=== PATIENT | male | born 1950 | race Caucasian/White ===

== ENCOUNTER 2017-04-05 11:29 | Emergency (ER) | payer MEDICARE ==
[2017-04-05 12:39] LABS: HEMOGLOBIN 8.8 gm/dl (14.0-17.5); RED BLOOD COUNT 4.32 M/UL (4.20-5.50); WHITE BLOOD COUNT 5.7 K/UL (4.5-11.0)
[2017-04-05 12:55] LABS: BUN/CREATININE RATIO 19 (0-10)
== END 2017-04-05 14:07 | disposition home or self-care (01) ==
LOC: ER1 11:29
PROVIDERS: Physician Assistant
DX: E87.5 Hyperkalemia (principal); E11.9 Type 2 diabetes mellitus without complications; I10 Essential (primary) hypertension; E78.5 Hyperlipidemia, unspecified; Z86.73 Personal history of transient ischemic attack (TIA), and cerebral infarction without residual deficits; Z88.0 Allergy status to penicillin; Z79.82 Long term (current) use of aspirin; Z79.899 Other long term (current) drug therapy; Z79.84 Long term (current) use of oral hypoglycemic drugs
CPT/HCPCS: 36415; 80053; 82550; 82553; 83874; 84484; 85025; 93005; 99285

== ENCOUNTER → 2017-04-07 | Outpatient (CLI) | payer MEDICARE ==
[2017-04-07 14:02] LABS: BUN/CREATININE RATIO 24 (0-10)
== END ==
LOC: LAB 13:06
PROVIDERS: Physician Assistant
DX: E87.5 Hyperkalemia (principal)
CPT/HCPCS: 36415; 80048

== ENCOUNTER 2021-01-06 13:49 | Observation (INO) | payer MEDICARE, OTHER ==
[~2021-01-06] VITALS: Ht 182.9 cm; Wt 90.7 kg
[2021-01-06 15:10] LABS: HEMOGLOBIN 12.9 gm/dl (14.0-17.5); RED BLOOD COUNT 4.74 M/UL (4.20-5.50); WHITE BLOOD COUNT 8.2 K/UL (4.5-11.0)
[2021-01-06 16:44] LABS: BUN/CREATININE RATIO 19 (0-10)
[2021-01-07] MEDS ORDERED: PROZAC20 MG PO (00:27)
[2021-01-07] MEDS ORDERED: TRAZODONE HCL100 MG PO (00:28)
[2021-01-07] MEDS ORDERED: ACTOS30 MG PO (00:28)
[2021-01-07] MEDS ORDERED: ALPRAZOLAM0.5 MG PO (00:34)
[2021-01-07] MEDS ORDERED: QUETIAPINE FUMA25 MG PO (00:34)
[2021-01-07] MEDS ORDERED: VERAPAMIL ER240 M1 PO (00:36)
[2021-01-07] MEDS ORDERED: GLUCOPHAGE 500500 MG GT (01:45)
[2021-01-07] MEDS ORDERED: PRILOSEC OTC20 MG PO (01:46)
[2021-01-07] MEDS ORDERED: LISINOPRIL10 MG PO (01:47)
[2021-01-07 03:42] LABS: HEMOGLOBIN 11.2 gm/dl (14.0-17.5); WHITE BLOOD COUNT 7.7 K/UL (4.5-11.0)
[2021-01-07 03:54] LABS: RED BLOOD COUNT 4.2 M/UL (4.20-5.50)
[2021-01-07 04:03] LABS: BUN/CREATININE RATIO 16 (0-10)
--- NOTE | 2021-01-08 15:14 | NUR ---
called and told pt about appt with neuro, Dr Locke 01/23/21 @ 0060 , so pt is aware
== END 2021-01-08 14:52 | disposition home or self-care (01) ==
LOC: ER1 13:49 → CDU 18:44 → M/S 19:45
PROVIDERS: Physician Assistant Medical; ADMIT Internal Medicine
DX: R55 Syncope and collapse (principal); E11.9 Type 2 diabetes mellitus without complications; E78.00 Pure hypercholesterolemia, unspecified; I10 Essential (primary) hypertension; G43.909 Migraine, unspecified, not intractable, without status migrainosus; E55.9 Vitamin D deficiency, unspecified; E53.8 Deficiency of other specified B group vitamins; Z89.411 Acquired absence of right great toe; Z89.421 Acquired absence of other right toe(s); Z88.0 Allergy status to penicillin; Z79.84 Long term (current) use of oral hypoglycemic drugs; Z79.899 Other long term (current) drug therapy
CPT/HCPCS: ECHO; 36415; 70450; 70551; 71045; 80048; 80053; 81001; 82550; 82553; 82607; 83735; 83874; 84439; 84443; 84484; 85025; 93005; 93306; 93880; 96374; 96376; 99285; G0378; J3475

== ENCOUNTER 2021-12-18 13:05 | Observation (INO) | payer MEDICARE, OTHER ==
[~2021-12-18] VITALS: Ht 182.9 cm; Wt 92.1 kg
[~2021-12-18 13:05] MED LIST: ACTOS30 MG PO; ALPRAZOLAM0.5 MG PO; GLUCOPHAGE 500500 MG PO; LISINOPRIL10 MG PO; PRILOSEC OTC20 MG PO; PROZAC20 MG PO; QUETIAPINE FUMA25 MG PO; TRAZODONE HCL100 MG PO; VERAPAMIL ER240 M1 PO
[2021-12-18 17:09] LABS: HEMOGLOBIN 10.7 gm/dl (14.0-17.5); RED BLOOD COUNT 4.08 M/UL (4.20-5.50); WHITE BLOOD COUNT 7.7 K/UL (4.5-11.0)
[2021-12-18 17:40] LABS: BUN/CREATININE RATIO 12 (0-10)
[2021-12-19] MEDS ORDERED: PROZAC20 MG PO (11:08)
[2021-12-19] MEDS ORDERED: LEVETIRACETAM500 MG PO (11:13)
[2021-12-19] MEDS ORDERED: ZOLPIDEM TART6.25 MG PO (11:15)
[2021-12-20 08:17] LABS: HEMOGLOBIN 10.4 gm/dl (14.0-17.5); RED BLOOD COUNT 3.95 M/UL (4.20-5.50); WHITE BLOOD COUNT 7.7 K/UL (4.5-11.0)
[2021-12-20 08:37] LABS: BUN/CREATININE RATIO 10 (0-10)
[2021-12-20] MEDS ORDERED: VITAMIN B-121000 MC3 PO (09:11)
[2021-12-20] MEDS ORDERED: ASPIRIN EC81 MG PO (09:11)
[2021-12-20] MEDS ORDERED: LEVOFLOXACIN500 MG PO (09:11)
[2021-12-20] MEDS ORDERED: LIPITOR20 MG PO (09:12)
== END 2021-12-20 12:35 | disposition home or self-care (01) ==
LOC: ER1 13:05 → CDU 20:13 → MED SURG 4 20:13
PROVIDERS: Internal Medicine; Nurse Practitioner; ADMIT Internal Medicine
DX: R42 Dizziness and giddiness (principal); E11.9 Type 2 diabetes mellitus without complications; I65.21 Occlusion and stenosis of right carotid artery; E53.8 Deficiency of other specified B group vitamins; E78.5 Hyperlipidemia, unspecified; N30.00 Acute cystitis without hematuria; I10 Essential (primary) hypertension; Z88.0 Allergy status to penicillin; Z79.84 Long term (current) use of oral hypoglycemic drugs; Z79.899 Other long term (current) drug therapy
CPT/HCPCS: ECHO; 36415; 70450; 70496; 70498; 70551; 71045; 80048; 80053; 80307; 81001; 82550; 82553; 82607; 83036; 83735; 84100; 84439; 84443; 84484; 85025; 87077; 87086; 87186; 93005; 93306; 96372; 97161; 97165; 99285; G0378; J1650; J3420; Q9967

== ENCOUNTER 2022-01-16 10:36 | Emergency (ER) | payer MEDICARE, OTHER ==
[~2022-01-16 10:36] MED LIST changes: +ASPIRIN EC81 MG PO; +LEVETIRACETAM500 MG PO; +LEVOFLOXACIN500 MG PO; +LIPITOR20 MG PO; +VITAMIN B-121000 MC3 PO; +ZOLPIDEM TART6.25 MG PO
[2022-01-16 11:35] LABS: RED BLOOD COUNT 3.81 M/UL (4.20-5.50); WHITE BLOOD COUNT 10.4 K/UL (4.5-11.0)
[2022-01-16] MEDS ORDERED: HYDROCODON-ACE1 EAC4 PO (14:20)
[2022-01-16 14:26] LABS: BUN/CREATININE RATIO 14 (0-10)
== END 2022-01-16 15:17 | disposition home or self-care (01) ==
LOC: ER1 10:36
PROVIDERS: Physician Assistant
DX: S22.41XA Multiple fractures of ribs, right side, initial encounter for closed fracture (principal); I95.1 Orthostatic hypotension; E11.9 Type 2 diabetes mellitus without complications; I10 Essential (primary) hypertension; Z88.0 Allergy status to penicillin; W19.XXXA Unspecified fall, initial encounter; Y92.009 Unspecified place in unspecified non-institutional (private) residence as the place of occurrence of the external cause
CPT/HCPCS: 70450; 71101; 80053; 82550; 82553; 84484; 85025; 93005; 96374; 96375; 96376; 99284; J2270; J2405

== ENCOUNTER 2022-03-01 17:53 | Emergency (ER) | payer MEDICARE, OTHER ==
[~2022-03-01 17:53] MED LIST changes: +HYDROCODON-ACE1 EAC4 PO
[2022-03-01 18:35] LABS: HEMOGLOBIN 9.9 gm/dl (14.0-17.5); RED BLOOD COUNT 4.2 M/UL (4.20-5.50); WHITE BLOOD COUNT 10.3 K/UL (4.5-11.0)
[2022-03-01 19:21] LABS: BUN/CREATININE RATIO 11 (0-10)
[2022-03-01] MEDS ORDERED: ONDANSETRON ODT4 MG SL (22:39)
[2022-03-01] MEDS ORDERED: MECLIZINE HCL25 MG PO (22:39)
== END 2022-03-02 06:04 | disposition home or self-care (01) ==
LOC: ER1 17:53
DX: R42 Dizziness and giddiness (principal); R11.2 Nausea with vomiting, unspecified; R74.02 Elevation of levels of lactic acid dehydrogenase [LDH]; E11.9 Type 2 diabetes mellitus without complications; E78.5 Hyperlipidemia, unspecified; I10 Essential (primary) hypertension; Z88.0 Allergy status to penicillin; Z20.822 Contact with and (suspected) exposure to COVID-19; Z88.2 Allergy status to sulfonamides; Z79.899 Other long term (current) drug therapy
CPT/HCPCS: 0240U; 70450; 70496; 70498; 71045; 80053; 81001; 82550; 82553; 83605; 83690; 84484; 85025; 93005; 96374; 99284; J2405; Q9967